=== PATIENT | male | born 1950 | race Caucasian/White ===

== ENCOUNTER → 2024-05-29 19:12 | Outpatient (REF) | payer OTHER, SELFPAY | LOC: MRI 19:12 | PROVIDERS: ATTENDING PHYSICIAN Nurse Practitioner; FAMILY PHYSICIAN Family Medicine | DX: M54.16 Radiculopathy, lumbar region (principal); M48.061 Spinal stenosis, lumbar region without neurogenic claudication | CPT/HCPCS: 72148 ==